=== PATIENT | female | born 1975 | race Caucasian/White ===

== ENCOUNTER 2021-08-10 09:48 | Emergency (ER) | payer BC ==
--- OUTSIDE RECORDS SUMMARY | 2021-08-10 09:52 | XMS REPORT | Continuity of Care Document ---
:1975 Author Organization [facility] t Address [address] [place] [address] Care Team Providers Name Role Phone Osmar BUCKNER, R Attending Clinician Unavailable Soren SHEA Attending Clinician RAVINDRA Attending Clinician Unavailable SOREN Attending Clinician Unavailable Doctor Unassigned, Name Attending Clinician Unavailable Lab, Fam Pob I Attending Clinician Unavailable Anene COSTUMED CHARACTER ENTERTAINER Attending Clinician ANENE Attending Clinician Unavailable Payers Payer Name Policy Type Policy Number Effective Date Expiration Date S [facility] [id number] 2018 00:00:00 Problems Condition Condition Condition Status Onset Resolution Last Treating Co mments Source Name Details Category Date Date Treatment Clinician Date Morbid Morbid Disease Active 2016-06 Univers obesity obesity 0-20 [place] index 00 [place]ical of of Branch 40.0-49.9 40.0-49.9 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 (herniated 0-18 it y of nucleus nucleus 00:00: [place] pulposus), pulposus), 00 Me dical lumbar lumbar Branch Allergies, Adverse Reactions, Alerts Allergy Allergy Status Severity Reaction(s) Onset Inactive Treating Comm ents Source Name Type Date Date Clinician NO KNOWN Drug Active Univers ALLERGIE Class ity of [facility] Social History Social Habit Start Date Stop Date Quantity Comments Source Exposure to Yes University of SARS-CoV-2 [facility] (event) Branch Tobacco use and 2017-06-18 2017-06-18 Never used Universit y of exposure 00:00:00 00:00:00 [facility] Alcohol intake 2017-06-18 2017-06-18 Current drinker Unive rsity of 00:00:00 00:00:00 of alcohol [facility] (finding) [place] Alcohol Comment 2017-04-02 2017-04-02 soially Universit y of 00:00:00 00:00:00 [facility] Sex Ass[birth year] At [birth year] Universit y of 00:00:00 00:00:00 [facility] Smoking Status Start Date Stop Date Source Former smoker 2017-06-18 00:00:00 2017-06-18 00:00:00 Universi ty of [facility] Medications Ordered Filled Start Stop Current Ordering Indication Dosage Frequency Signature Comments Components Source Medication Medication Date Date Medication? Clinician (SIG) Name Name GABAPENTIN Yes 600mg Take 600 Un aleisha ORAL 1-03 mg by ity of 18:20: mouth. [address] HYDROcodone Yes 1{tbl} Take 1 Un aleisha -acetaminop 1-03 tablet by ity of hen 10-325 18:20: mouth [place] mg tablet 03 every 8 Medical (eight) Branch hours as needed. predniSONE Yes 10mg Take 10 mg U nivers 10 mg 1-03 by mouth 2 ity of tablet 18:20: (two) [place] [id number] times Medical daily. Branch GABAPENTIN Yes 600mg Take 600 Un aleisha ORAL 1-03 mg by ity of 18:20: mouth. [address] HYDROcodone Yes 1{tbl} Take 1 Un aleisha -acetaminop 1-03 tablet by ity of hen 10-325 18:20: mouth [place] mg tablet 03 every 8 Medical (eight) Branch hours as needed. predniSONE Yes 10mg Take 10 mg U nivers 10 mg 1-03 by mouth 2 ity of tablet 18:20: (two) [place] 03 times Medical daily. Branch GABAPENTIN Yes 600mg Take 600 Un aleisha ORAL 1-03 mg by ity of 18:20: mouth. [place] 03 Medical Branch HYDROcodone Yes 1{tbl} Take 1 Un aleisha -acetaminop 1-03 tablet by ity of hen 10-325 18:20: mouth [place] mg tablet 03 every 8 Medical (eight) Branch hours as needed. predniSONE Yes 10mg Take 10 mg U nivers 10 mg 1-03 by mouth 2 ity of tablet 18:20: (two) [place] 03 times Medical daily. Branch GABAPENTIN Yes 600mg Take 600 Un aleisha ORAL 1-03 mg by ity of 18:20: mouth. Medical Branch HYDROcodone Yes 1{tbl} Take 1 Un aleisha -acetaminop 1-03 tablet by ity of hen 10-325 18:20: mouth [place] mg tablet 03 every 8 Medical (eight) Branch hours as needed. predniSONE Yes 10mg Take 10 mg U nivers 10 mg 1-03 by mouth 2 ity of tablet 18:20: (two) [place] 03 times Medical daily. Branch GABAPENTIN Yes 600mg Take 600 Un aleisha ORAL 1-03 mg by ity of 18:20: mouth. Medical Branch HYDROcodone Yes 1{tbl} Take 1 Un aleisha -acetaminop 1-03 tablet by ity of hen 10-325 18:20: mouth [place] mg tablet 03 every 8 Medical (eight) Branch hours as needed. predniSONE Yes 10mg Take 10 mg U nivers 10 mg 1-03 by mouth 2 ity of tablet 18:20: (two) [place] 03 times Medical daily. Branch GABAPENTIN Yes 600mg Take 600 Un aleisha ORAL 1-03 mg by ity of 18:20: mouth. Medical Branch HYDROcodone Yes 1{tbl} Take 1 Un aleisha -acetaminop 1-03 tablet by ity of hen 10-325 18:20: mouth [place] mg tablet 03 every 8 Medical (eight) Branch hours as needed. predniSONE Yes 10mg Take 10 mg U nivers 10 mg 1-03 by mouth 2 ity of tablet 18:20: (two) [place] 03 times Medical daily. Branch docusate 2016-06 Yes 100mg Take 1 Univer s 100 mg 0-21 capsule by ity of capsule 00:00: mouth 2 [place] 00 (two) Medical times Branch daily. HYDROcodone 2016-06 Yes 1{tbl} Take 1 Un aleisha -acetaminop 0-21 tablet by ity of hen 5-325 00:00: mouth [place] mg tablet 00 every 6 Medical (six) Branch hours as needed for Pain (scale 4-6) or Pain (scale 7-10). docusate 2016-06 Yes 100mg Take 1 Univer s 100 mg 0-21 capsule by ity of capsule 00:00: mouth 2 [place] 00 (two) Medical times Branch daily. HYDROcodone 2016-06 Yes 1{tbl} Take 1 Un aleisha -acetaminop 0-21 tablet by ity of hen 5-325 00:00: mouth [place] mg tablet 00 every 6 Medical (six) Branch hours as needed for Pain (scale 4-6) or Pain (scale 7-10). docusate 2016-06 Yes 100mg Take 1 Univer s 100 mg 0-21 capsule by ity of capsule 00:00: mouth 2 [place] 00 (two) Medical times Branch daily. HYDROcodone 2016-06 Yes 1{tbl} Take 1 Un aleisha -acetaminop 0-21 tablet by ity of hen 5-325 00:00: mouth [place] mg tablet 00 every 6 Medical (six) Branch hours as needed for Pain (scale 4-6) or Pain (scale 7-10). docusate 2016-06 Yes 100mg Take 1 Univer s 100 mg 0-21 capsule by ity of capsule 00:00: mouth 2 [place] 00 (two) Medical times Branch daily. HYDROcodone 2016-06 Yes 1{tbl} Take 1 Un aleisha -acetaminop 0-21 tablet by ity of hen 5-325 00:00: mouth [place] mg tablet 00 every 6 Medical (six) Branch hours as needed for Pain (scale 4-6) or Pain (scale 7-10). docusate 2016-06 Yes 100mg Take 1 Univer s 100 mg 0-21 capsule by ity of capsule 00:00: mouth 2 [place] 00 (two) Medical times Branch daily. HYDROcodone 2016-06 Yes 1{tbl} Take 1 Un aleisha -acetaminop 0-21 tablet by ity of hen 5-325 00:00: mouth [place] mg tablet 00 every 6 Medical (six) Branch hours as needed for Pain (scale 4-6) or Pain (scale 7-10). docusate 2016-06 Yes 100mg Take 1 Univer s 100 mg 0-21 capsule by ity of capsule 00:00: mouth 2 [place] 00 (two) Medical times Branch daily. HYDROcodone 2016-06 Yes 1{tbl} Take 1 Un aleisha -acetaminop 0-21 tablet by ity of hen 5-325 00:00: mouth [place] mg tablet 00 every 6 Medical (six) Branch hours as needed for Pain (scale 4-6) or Pain (scale 7-10). cyclobenzap 2016-06 Yes 5mg Take 1 Univ ers rine 5 mg 0-06 tablet by ity o f tablet 00:00: mouth 3 [place] 00 (three) Medical times Branch daily. cyclobenzap 2016-06 Yes 5mg Take 1 Univ ers rine 5 mg 0-06 tablet by ity o f tablet 00:00: mouth 3 [place] 00 (three) Medical times Branch daily. cyclobenzap 2016-06 Yes 5mg Take 1 Univ ers rine 5 mg 0-06 tablet by ity o f tablet 00:00: mouth 3 [place] 00 (three) Medical times Branch daily. cyclobenzap 2016-06 Yes 5mg Take 1 Univ ers rine 5 mg 0-06 tablet by ity o f tablet 00:00: mouth 3 [place] 00 (three) Medical times Branch daily. cyclobenzap 2016-06 Yes 5mg Take 1 Univ ers rine 5 mg 0-06 tablet by ity o f tablet 00:00: mouth 3 [place] 00 (three) Medical times Branch daily. cyclobenzap 2016-06 Yes 5mg Take 1 Univ ers rine 5 mg 0-06 tablet by ity o f tablet 00:00: mouth 3 [place] 00 (three) Medical times Branch daily. traMADOL Yes 50mg Take 1 Univers (ULTRAM) 50 4-21 tablet by ity of mg tablet 00:00: mouth [place] 00 every 6 Medical (six) Branch hours as needed for Pain (scale 7-10). benzonatate Yes 200mg Take 1 Uni vers (TESSALON) 4-21 capsule by ity of 200 mg 00:00: mouth 3 [place] capsule 00 (three) Medical times Branch daily as needed for Cough. albuterol Yes 2{puff} Inhale 2 U nivers (VENTOLIN) 4-21 Puffs ity of 90 00:00: every 4 [place] mcg/actuati 00 (four) Medica l on inhaler hours as Branc h needed for Wheezing or Shortness of Breath. traMADOL 2016-0 Yes 50mg Take 1 Univers (ULTRAM) 50 4-21 tablet by ity of mg tablet 00:00: mouth [place] 00 every 6 Medical (six) Branch hours as needed for Pain (scale 7-10). benzonatate 2016-0 Yes 200mg Take 1 Uni vers (TESSALON) 4-21 capsule by ity of 200 mg 00:00: mouth 3 [place] capsule 00 (three) Medical times Branch daily as needed for Cough. albuterol 2016-0 Yes 2{puff} Inhale 2 U nivers (VENTOLIN) 4-21 Puffs ity of 90 00:00: every 4 [place] mcg/actuati 00 (four) Medica l on inhaler hours as Branc h needed for Wheezing or Shortness of Breath. traMADOL 2016-0 Yes 50mg Take 1 Univers (ULTRAM) 50 4-21 tablet by ity of mg tablet 00:00: mouth [place] 00 every 6 Medical (six) Branch hours as needed for Pain (scale 7-10). benzonatate 2016-0 Yes 200mg Take 1 Uni vers (TESSALON) 4-21 capsule by ity of 200 mg 00:00: mouth 3 [place] capsule 00 (three) Medical times Branch daily as needed for Cough. albuterol 2016-0 Yes 2{puff} Inhale 2 U nivers (VENTOLIN) 4-21 Puffs ity of 90 00:00: every 4 [place] mcg/actuati 00 (four) Medica l on inhaler hours as Branc h needed for Wheezing or Shortness of Breath. traMADOL 2016-0 Yes 50mg Take 1 Univers (ULTRAM) 50 4-21 tablet by ity of mg tablet 00:00: mouth [place] 00 every 6 Medical (six) Branch hours as needed for Pain (scale 7-10). benzonatate 2016-0 Yes 200mg Take 1 Uni vers (TESSALON) 4-21 capsule by ity of 200 mg 00:00: mouth 3 [place] capsule 00 (three) Medical times Branch daily as needed for Cough. albuterol 2016-0 Yes 2{puff} Inhale 2 U nivers (VENTOLIN) 4-21 Puffs ity of 90 00:00: every 4 [place] mcg/actuati 00 (four) Medica l on inhaler hours as Branc h needed for Wheezing or Shortness of Breath. traMADOL 2016-0 Yes 50mg Take 1 Univers (ULTRAM) 50 4-21 tablet by ity of mg tablet 00:00: mouth [place] 00 every 6 Medical (six) Branch hours as needed for Pain (scale 7-10). benzonatate 2016-0 Yes 200mg Take 1 Uni vers (TESSALON) 4-21 capsule by ity of 200 mg 00:00: mouth 3 [place] capsule 00 (three) Medical times Branch daily as needed for Cough. albuterol 2016-0 Yes 2{puff} Inhale 2 U nivers (VENTOLIN) 4-21 Puffs ity of 90 00:00: every 4 [place] mcg/actuati 00 (four) Medica l on inhaler hours as Branc h needed for Wheezing or Shortness of Breath. traMADOL 2016-0 Yes 50mg Take 1 Univers (ULTRAM) 50 4-21 tablet by ity of mg tablet 00:00: mouth [place] 00 every 6 Medical (six) Branch hours as needed for Pain (scale 7-10). benzonatate 2016-0 Yes 200mg Take 1 Uni vers (TESSALON) 4-21 capsule by ity of 200 mg 00:00: mouth 3 [place] capsule 00 (three) Medical times Branch daily as needed for Cough. albuterol 2015-0 Yes 2{puff} Inhale 2 U nivers (VENTOLIN) 4-21 Puffs ity of 90 00:00: every 4 [place] mcg/actuati 00 (four) Medica l on inhaler hours as Branc h needed for Wheezing or Shortness of Breath. Immunizations Ordered Filled Immunization Date Status Comments [facility] e Immunization Name Name Influenza Virus 2017-04-05 Completed Universit y of Vaccine Quad IM 3+ 00:00:00 [facility] Influenza Virus 2017-04-05 Completed Universit y of Vaccine Quad IM 3+ 00:00:00 [facility] Influenza Virus 2017-04-05 Completed Universit y of Vaccine Quad IM 3+ 00:00:00 [facility] Influenza Virus 2017-04-05 Completed Universit y of Vaccine Quad IM 3+ 00:00:00 [facility] Influenza Virus 2017-04-05 Completed Universit y of Vaccine Quad IM 3+ 00:00:00 [facility] Influenza Virus 2017-04-05 Completed Universit y of Vaccine Quad IM 3+ 00:00:00 [facility] Procedures Procedure Date / Time Performed Performing Clinician [facility] e ASSIGNMENT OF BENEFITS 2021-02-02 22:32:34 Doctor Unassigned, No [facility] Name [facility] Branch COVID-19 (PCR 2020-01-14 14:30:00 Yancy Us [place] MOLECULAR TESTING) Medical Bran h Encounters Start End Encounter Admission Attending Care Care Encounter Source Date/Time Date/Time Type Type Clinicians Facility Department ID 2021-06-24 2021-06-24 Outpatient R [facility] [id number] Univers 12:15:00 12:15:00 [id number] ity [facility] 2021-06-24 2021-06-24 Outpatient R [facility] [id number] Univers 12:15:00 12:15:00 ity [facility] 2021-02-03 2021-02-03 Telephone ANIVAL Prasad [id number] Univers 00:00:00 00:00:00 [place] Jay ZEE [id number] it y of [facility] [id number] Mikel as [id number] [facility] 019 [place] 2021-02-02 2021-02-02 [facility] MARTÍNEZ Real [id number] Univers 11:49:00 23:59:00 Encounter Natasha Elizondo [id number] ity of [facility] [id number] Mikel as [id number] [facility] 031 Branch 2021-02-02 2021-02-02 Outpatient [facility] [id number] Univers 18:10:00 18:10:00 [id number] ity [facility] 2021-02-02 2021-02-02 [facility] [id number] Univers 18:10:00 18:10:00 [place] busch o fátima [facility] 2021-02-02 2021-02-02 [facility] A[facility] [id number] Univers 00:00:00 00:00:00 NATASHA ity [facility] 2021-02-02 2021-02-02 Orders Doctor ANIVAL [id number] Univers 00:00:00 00:00:00 Only UnassignedYAYO [id number] ity of [place] [facility] [id number] Mikel as [id number] [address] 2020-01-14 2020-01-17 Laboratory Lab, Adc Fam Pob I [facility] [id number] Univers 09:28:47 14:37:34 Only Yancy Us [id number] ity of [place] [id number] Mikel as Jas [id number] Id dical [facility] [address] [place] [address] 2020-01-14 2020-01-14 Outpatient R KEIKO [facility] [id number] Univers 09:40:00 09:40:00 YANCY busch [facility] Results Test Description Test Time Test Comments Results Result Comments Source COVID-19 (PCR MOLECULAR TESTING) 2020-01-15 05:41:00 Test Item Value Reference Range Interpretation Comme nts SARS-CoV-2 PCR (test code = Not Detected Not Detected 17974-5) NELSON (test code = NELSON) [employer] SARS-CoV-2 Assay is a nucleic acid amplification test intended for the qualitative detection of RNA from SARS-CoV-2 from nasopharyngeal (ARTIFICIAL BREAST FABRICATOR) specimens. ?It is used under Emergency Use Authorization (EUA) by FDA. A positive result is indicative of the presence of SARS-CoV-2 RNA. ?Clinical correlation with patient history and other diagnostic information is necessary to determine patient infection status. A negative (Not Detected) result does not preclude SARS-CoV-2 infection. ?Clinical correlation with patient history and other diagnostic information should be used in patient management decisions. Invalid: Unable to generate a valid test result on this specimen. ?Please submit a new specimen for repeat testing if clinically indicated. Lab Interpretation (test code = Normal 99248-9) [facility]15 05:41:00 Test Item Value Reference Range Interpretation Comments SARS-CoV-2 PCR (test Not Detected Not Detected code = 76807-5) NELSON (test code = NELSON) [employer] SARS-CoV-2 Assay is a nucleic acid amplification test intended for the qualitative detection of RNA from SARS-CoV-2 from nasopharyngeal (ARTIFICIAL BREAST FABRICATOR) specimens. ?It is used under Emergency Use Authorization (EUA) by FDA. A positive result is indicative of the presence of SARS-CoV-2 RNA. ?Clinical correlation with patient history and other diagnostic information is necessary to determine patient infection status. A negative (Not Detected) result does not preclude SARS-CoV-2 infection. ?Clinical correlation with patient history and other diagnostic information should be used in patient management decisions. Invalid: Unable to generate a valid test result on this specimen. ?Please submit a new specimen for repeat testing if clinically indicated. Lab Interpretation Normal (test code = 98283-4) [facility]
[2021-08-10] MEDS ORDERED: MORPHINE 4 MG/ML SYR ONE ×2 (10:20→11:58)
--- NOTE | 2021-08-10 11:44 | RAD REPORT ---
EXAM DESCRIPTION: RAD - Ankle Left 3 View -08/10/2021 10:45 am CLINICAL HISTORY: Left ankle pain status post injury FINDINGS: No fracture or dislocation is seen. Large calcaneal spurs
--- NOTE | 2021-08-10 11:45 | RAD REPORT ---
EXAM DESCRIPTION: RAD - Wrist Right 3 View - 08/10/2021 10:45 am CLINICAL HISTORY: Right wrist pain status post injury FINDINGS: No fracture or dislocation is seen. If the patient continues to have symptoms to suggest a n occult fracture then a followup plain film series in 7 days would be recommended.
--- NOTE | 2021-08-10 12:03 | RAD REPORT ---
EXAM DESCRIPTION: CTSpine Lumbar Wo Con08/10/2021 10:43 am CLINICAL HISTORY: Back injury status post fall. Back pain COMPARISON: None TECHNIQUE: Computed axial tomography lumbar spine was obtained with coronal and sagittal reconstruct ion. All CT scans are performed using dose optimization technique as appropriate and may include automated exposure control or mA/KV adjustment according to patient size. FINDINGS: Postsurgical changes involve the lumbar spine. No fracture or dislocation seen. Spondylosis L4-5 appears to result in moderate central spinal stenosis. In addition there does appear to be a left posterolateral disc herniation extending inferiorly. Neurostimulator device in place IMPRESSION: No fracture is seen. There appears to be a left posterolateral disc herniation L4-5 extending inferiorly. Evaluation is li mited on CT. Significant central spinal stenosis suspected
--- NOTE | 2021-08-10 12:08 | RAD REPORT ---
EXAM DESCRIPTION: CT - Pelvis Wo Cont - 08/10/2021 10:43 am CLINICAL HISTORY: Pelvic pain status post fall COMPARISON: None. TECHNIQUE: Computed axial tomography of the pelvis was obtained. Coronal and sagittal reconstruction performed All CT scans are performed using dose optimization technique as appropriate and may include automated exposure control or mA/KV adjustment according to patient size. FINDINGS: No fracture is seen. No dislocation Significant right hip joint effusion not seen. Right hip muscles normal size and density. IMPRESSION: No fracture seen
--- NOTE | 2021-08-10 12:30 | EDPHYS ---
Physician Documentation [facility] Name: Abimbola Gaffney Age: 46 yrs Sex: Female : 1975 Arrival Date: 08/10/2021 Time: 09:53 Bed 23 Private MD: Ankush Sosa E ED Physician Dante Landon HPI: 08/10 12:03 This 46 yrs old Female presents to ER via Wheelchair with complaints of Fall Injury, jr8 Back Pain. 12:03 Details of fall: The patient fell from an upright position, while standing. Onset: The jr8 symptoms/episode began/occurred acutely, today. Associated injuries: The patient sustained right wrist, decreased range of motion, left ankle, tender , low back, pain with decreased ROM, right hip. Severity of symptoms: At their worst the symptoms were moderate, in the emergency department the symptoms are unchanged. The patient has not experienced similar symptoms in the past. The patient has not recently seen a physician. Patient stated that she missteped and tripped landing on left wrist and back. Pain to specified areas listed above. Denies hitting head or neck. No LOC . 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 - Social history:: Smoking status: Patient denies any tobacco usage or history of. ROS: 12:03 Eyes: Negative for injury, pain, redness, and discharge, ENT: Negative for injury, jr8 pain, and discharge, Neck: Negative for injury, pain, and swelling, Cardiovascular: Negative for chest pain, palpitations, and edema, Respiratory: Negative for shortness of breath, cough, wheezing, and pleuritic chest pain, Abdomen/GI: Negative for abdominal pain, nausea, vomiting, diarrhea, and constipation, Skin: Negative for injury, rash, and discoloration, Neuro: Negative for headache, weakness, numbness, tingling, and seizure. 12:03 Back: Positive for decreased range of motion, pain at rest, pain with movement, of the low back area. 12:03 MS/extremity: Positive for pain, tenderness, of the right hip and wrist. Left ankle. Exam: 12:03 Head/Face: Normocephalic, atraumatic. Eyes: Pupils equal round and reactive to light, jr8 extra-ocular motions intact. Lids and lashes normal. Conjunctiva and sclera are non-icteric and not injected. Cornea within normal limits. Periorbital areas with no swelling, redness, or edema. ENT: Nares patent. No nasal discharge, no septal abnormalities noted. Tympanic membranes are normal and external auditory canals are clear. Oropharynx with no redness, swelling, or masses, exudates, or evidence of obstruction, uvula midline. Mucous membranes moist. Neck: Trachea midline, no thyromegaly or masses palpated, and no cervical lymphadenopathy. Supple, full range of motion without nuchal rigidity, or vertebral point tenderness. No Meningismus. Chest/axilla: Normal chest wall appearance and motion. Nontender with no deformity. No lesions are appreciated. Cardiovascular: Regular rate and rhythm with a normal S1 and S2. No gallops, murmurs, or rubs. Normal PMI, no JVD. No pulse deficits. Respiratory: Lungs have equal breath sounds bilaterally, clear to auscultation and percussion. No rales, rhonchi or wheezes noted. No increased work of breathing, no retractions or nasal flaring. Abdomen/GI: Soft, non-tender, with normal bowel sounds. No distension or tympany. No guarding or rebound. No evidence of tenderness throughout. Skin: Warm, dry with normal turgor. Normal color with no rashes, no lesions, and no evidence of cellulitis. Neuro: Awake and alert, GCS 15, oriented to person, place, time, and situation. Cranial nerves II-XII grossly intact. Motor strength 5/5 in all extremities. Sensory grossly intact. 12:03 Back: pain, that is moderate, of the lumbar area and low back area, ROM is painful, normal spinal alignment noted, vertebral tenderness, is appreciated at L2 and L3. 12:03 Musculoskeletal/extremity: Extremities: grossly normal except: noted in the right wrist: pain, tenderness, to dorsal wrist , noted in the left ankle: pain, tenderness, ROM: intact in all extremities, Circulation is intact in all extremities. Sensation intact. Vital Signs: 10:01 BP 150 / 102; Pulse 85; Resp 17; Temp 97.9; Pulse Ox 99% ; Weight 132.9 kg; Height 5 jl7 ft. 8 in. (172.72 cm); Pain 8/10; 10:09 BP 136 / 98; Pulse 81; Resp 16; Pulse Ox 100% on R/A; Pain 10/10; ab2 11:03 BP 117 / 66; Pulse 80; Resp 16; Pulse Ox 100% on R/A; ab2 12:15 BP 95 / 59; Pulse 61; Resp 16; Pulse Ox 100% ; ab2 13:15 BP 128 / 70; Pulse 68; Resp 16; Pulse Ox 99% on R/A; ab2 10:01 Body Mass Index 44.55 (132.90 kg, 172.72 cm) jl7 Cuddy Coma Score: 10:09 Eye Response: spontaneous(4). Verbal Response: oriented(5). Motor Response: obeys ab2 commands(6). Total: 15. MDM: 09:58 Patient medically screened. jr8 12:11 Data reviewed: vital signs, nurses notes, radiologic studies, CT scan, plain films. jr8 Data interpreted: Pulse oximetry: on room air is 100 %. Interpretation: normal. Counseling: I had a detailed discussion with the patient and/or guardian regarding: the historical points, exam findings, and any diagnostic results supporting the discharge/admit diagnosis, radiology results, the need for outpatient follow up, a family practitioner, to return to the emergency department if symptoms worsen or persist or if there are any questions or concerns that arise at home. Response to treatment: the patient's symptoms have mildly improved after treatment. ED course: Discussed with patient that there are no acute fractures. Significant herniation noted on CT but patient without any focal deficits or saddle anesthesia. No bowel or bladder dysfunction. Patient has significant back history with previous surgeries. Will have her f/u with her orthospine physician . 08/10 10:10 Order name: CT Lumbar Spine Wo Con; Complete Time: 12:10 8 08/10 10:10 Order name: Pelvis Wo Cont CT; Complete Time: 12:10 8 08/10 10:10 Order name: XRAY Wrist RIGHT 3 view; Complete Time: 11:52 jr8 08/10 10:10 Order name: XRAY Ankle LEFT 3 view; Complete Time: jr8 Administered Medications: 10:49 Drug: morphine 4 mg Route: IM; Site: left deltoid; ab2 11:54 Follow up: Response: No adverse reaction ab2 11:57 Drug: morphine 4 mg Route: IM; Site: right deltoid; ab2 13:15 Follow up: Response: No adverse reaction ab2 12:52 Drug: Dilaudid (HYDROmorphone) 1 mg Route: IM; Site: left deltoid; ab2 13:15 Follow up: Response: No adverse reaction ab2 Disposition Summary: 08/10/21 12:29 Discharge Ordered Location: Home jr8 Problem: new jr8 Symptoms: have improved jr8 Condition: Stable jr8 Diagnosis - Low back pain jr8 - Contusion of right wrist jr8 - Contusion of right hip jr8 Followup: jr8 - With: Private Physician - When: 2 - 3 days - Reason: Recheck today's complaints, Continuance of care, Re-evaluation by your physician Discharge Instructions: - Discharge Summary Sheet jr8 - Acute Back Pain, Adult jr8 - Musculoskeletal Pain jr8 - Heat Therapy jr8 Forms: - Medication Reconciliation Form jr8 - Thank You Letter jr8 - Antibiotic Education jr8 - Prescription Opioid Use jr8 Signatures: Dispatcher [employer] Tien Arnold PA PA jr8 Mi Rangel RN RN renu7 Stephen Colón ab2 Corrections: (The following items were deleted from the chart) 10:05 10:03 Home Meds: None; jhonatan israel
--- NOTE | 2021-08-10 12:30 | ER ---
Nurse's Notes [facility] Name: Abimbola Gaffney Age: 46 yrs Sex: Female : 1975 Arrival Date: 08/10/2021 Time: 09:53 Bed 23 Private MD: Ankush Sosa E Diagnosis: Low back pain;Contusion of right wrist;Contusion of right hip Presentation: 08/10 10:01 Chief complaint: Patient states: Tripped and fell over puppy from 1 step up onto jl7 concrete porch, fell on right hand and right hip, reports pain to right wrist, right hip and low back. Coronavirus screen: At this time, the client does not indicate any symptoms associated with coronavirus-19. Ebola Screen: No symptoms or risks identified at this time. Initial Sepsis Screen: Does the patient meet any 2 criteria? No. Patient's initial sepsis screen is negative. Does the patient have a suspected source of infection? No. Patient's initial sepsis screen is negative. Risk Assessment: Do you want to hurt yourself or someone else? Patient reports no desire to harm self or others. Onset of symptoms was August 10, 2021. 10:01 Method Of Arrival: Wheelchair jl7 10:01 Acuity: MAURO 3 jl7 Triage Assessment: 10:03 General: Appears in no apparent distress. uncomfortable, Behavior is calm, cooperative, jl7 appropriate for age. Pain: Complains of pain in low back area, right hip and right hand Pain currently is 8 out of 10 on a pain scale. 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 - Social history:: Smoking status: Patient denies any tobacco usage or history of. Screenin:08 Abuse screen: Denies threats or abuse. Denies injuries from another. Nutritional ab2 screening: No deficits noted. Tuberculosis screening: No symptoms or risk factors identified. Fall Risk Fall in past 12 months (25 points). No IV (0 pts). Ambulatory Aid- None/Bed Rest/Nurse Assist (0 pts). Gait- Normal/Bed Rest/Wheelchair (0 pts) Mental Status- Oriented to own ability (0 pts). Total Parker Fall Scale indicates Low Risk Score (25-44 pts). Fall prevention measures have been instituted. Side Rails Up X 2 Placed close to Nursing Station Frequent Obs/Assesments occuring Family Present and informed to notify staff if they need to leave bedside As available Patient and Family Educated on Fall Prevention Program and strategies. Assessment: 10:06 General: Appears in no apparent distress. uncomfortable, obese, Behavior is calm, ab2 cooperative, appropriate for age. Pain: Complains of pain in back, right lower back and right hand Pain currently is 10 out of 10 on a pain scale. Neuro: Level of Consciousness is awake, alert, obeys commands, Oriented to person, place, time, situation, Appropriate for age Photograph Editor are equal bilaterally Moves all extremities. Gait is steady, Speech is normal, Facial symmetry appears normal. Cardiovascular: No deficits noted. Denies chest pain, shortness of breath, Heart tones S1 S2 present Patient's skin is warm and dry. Chest pain is denied. Respiratory: No deficits noted. Airway is patent Respiratory effort is even, unlabored, Respiratory pattern is regular, symmetrical. GI: No deficits noted. No signs and/or symptoms were reported involving the gastrointestinal system. Abdomen is non-distended, obese. : No deficits noted. No signs and/or symptoms were reported regarding the genitourinary system. EENT: No deficits noted. No signs and/or symptoms were reported regarding the EENT system. Derm: No deficits noted. No signs and/or symptoms reported regarding the dermatologic system. Skin is intact, is healthy with good turgor, Skin is dry, Skin is pink, warm \T\ dry. Musculoskeletal: Reports pain in back, pelvis and right hand. Injury Description: Pt tripped going down a single stair and landed on right side. Denies hitting head or LOC. 11:11 Reassessment: Patient appears in no apparent distress at this time. Pt states the pain ab2 medication given did not help. SANTOS Cruz notified. 13:16 Reassessment: Patient appears in no apparent distress at this time. Awaiting CD from ab2 imaging for patient to take to her doctor. Vital Signs: 10:01 BP 150 / 102; Pulse 85; Resp 17; Temp 97.9; Pulse Ox 99% ; Weight 132.9 kg; Height 5 jl7 ft. 8 in. (172.72 cm); Pain 8/10; 10:09 BP 136 / 98; Pulse 81; Resp 16; Pulse Ox 100% on R/A; Pain 10/10; ab2 11:03 BP 117 / 66; Pulse 80; Resp 16; Pulse Ox 100% on R/A; ab2 12:15 BP 95 / 59; Pulse 61; Resp 16; Pulse Ox 100% ; ab2 13:15 BP 128 / 70; Pulse 68; Resp 16; Pulse Ox 99% on R/A; ab2 10:01 Body Mass Index 44.55 (132.90 kg, 172.72 cm) jl7 [place] Coma Score: 10:09 Eye Response: spontaneous(4). Verbal Response: oriented(5). Motor Response: obeys ab2 commands(6). Total: 15. ED Course: 09:53 Patient arrived in ED. mr 09:53 Ankush Sosa MD is Private Physician. mr 09:58 [facility] jr8 09:58 Dante Landon MD is Attending Physician. jr8 10:03 Stephen Colón is Primary Nurse. ab2 10:03 Triage completed. jl7 10:03 Arm band placed on right wrist. jl7 10:09 Patient has correct armband on for positive identification. Placed in gown. Bed in low ab2 position. Call light in reach. Side rails up X2. Adult w/ patient. 10:09 No provider procedures requiring assistance completed. ab2 10:43 CT Lumbar Spine Wo Con In Process Unspecified. EDMS 10:[address] In Process Unspecified. EDMS 10:44 XRAY Wrist RIGHT 3 view In Process Unspecified. EDMS 10:44 XRAY Ankle LEFT 3 view In Process Unspecified. EDMS 13:28 IV discontinued. ab2 Administered Medications: 10:49 Drug: morphine 4 mg Route: IM; Site: left deltoid; ab2 11:54 Follow up: Response: No adverse reaction ab2 11:57 Drug: morphine 4 mg Route: IM; Site: right deltoid; ab2 13:15 Follow up: Response: No adverse reaction ab2 12:52 Drug: Dilaudid (HYDROmorphone) 1 mg Route: IM; Site: left deltoid; ab2 13:15 Follow up: Response: No adverse reaction ab2 Outcome: 12:29 Discharge ordered by . clement 13:28 Discharged to home via wheelchair, with significant other. ab2 13:28 Condition: good 13:28 Discharge instructions given to patient, family, Instructed on discharge instructions, follow up and referral plans. Demonstrated understanding of instructions, follow-up care. 13:28 Patient left the ED. ab2 Signatures: Dispatcher [employer] EDOK Fredy Ashley mr Tien Cruz PA PA jr8 Leal, Jahala, RN RN renu7 Stephen Colón ab2 Corrections: (The following items were deleted from the chart) 10:05 10:03 Home Meds: None; jhonatan israel
[2021-08-10] MEDS ORDERED: HYDROMORPHONE HCL 1 MG/ML INJ ONE (12:52)
[2021-08-10 13:39] VITALS: TEMP 97.9
[2021-08-10 13:45] VITALS: BP 128/70; O2SAT 99
== END 2021-08-10 13:28 | disposition home or self-care (01) ==
LOC: ER 09:48
DX: M54.50 Low back pain, unspecified (principal); S70.01XA Contusion of right hip, initial encounter; S60.211A Contusion of right wrist, initial encounter; W01.0XXA Fall on same level from slipping, tripping and stumbling without subsequent striking against object, initial encounter
CPT/HCPCS: 72131; 72192; 73110; 73610; 96372; 99283; J1170